=== PATIENT | female | born 1985 ===

== ENCOUNTER 2023-05-23 13:03 | Emergency (ER) | payer SELFPAY ==
[~2023-05-23] VITALS: Ht 162.6 cm; Wt 75.0 kg
[2023-05-23 13:18] VITALS: O2SAT 83
[2023-05-23 14:20] LABS: CLARITY URINE CLEAR (CLEAR); COLOR URINE YELLOW (YELLOW); GLUCOSE URINE NEGATIVE (NEGATIVE); KETONES URINE NEGATIVE (NEGATIVE); LEUKOCYTE ESTERASE URINE 1+ (NEGATIVE); NITRITE URINE NEGATIVE (NEGATIVE); OCCULT BLOOD URINE TRACE (NEGATIVE); PROTEIN URINE NEGATIVE (NEGATIVE); SPECIFIC GRAVITY URINE 1.009 (1.005-1.030); UROBILINOGEN URINE 0.2 E.U./dL (0.2-1.0)
[2023-05-23] MEDS ORDERED: MAGNESIUM/ALUMINUM HYDROXIDE/SIMETHICONE 30ML UDC PO STA (14:21)
[2023-05-23 14:29] LABS: BASOPHILS % 0.3 % (0.0-2.0); EOSINOPHILS % 2.1 % (0.0-5.0); HEMATOCRIT. 41.2 % (36.0-48.0); HEMOGLOBIN. 13.7 g/dL (12.0-16.0); LYMPHOCYTES % 41.6 % (20.0-50.0); MEAN CORPUSCULAR HEMOGLOBIN 29.9 pg (28.0-32.0); MEAN CORPUSCULAR HGB CONC 33.3 g/dL (31.0-37.0); MEAN CORPUSCULAR VOLUME 89.8 fL (81.0-99.0); MEAN PLATELET VOLUME 9.1 fl (7.4-10.4); MONOCYTES % 11.3 % (2.0-8.0); NEUTROPHILS % 44.7 % (40.0-76.0); PLATELET 297 x1000/uL (130-400); RED BLOOD CELL COUNT 4.59 mill/uL (4.2-5.4); WHITE BLOOD COUNT 4.1 x1000/uL (4.5-11.0)
[2023-05-23] MEDS ORDERED: ONDANSETRON HCL 4MG TABLET PO ONE (14:30)
[2023-05-23] MEDS ORDERED: FAMOTIDINE 20MG TABLET PO ONE (14:30)
[2023-05-23] MEDS ORDERED: VISCOUS LIDOCAINE 2% 15 ML UDC PO NR (14:30)
[2023-05-23 14:40] LABS: SQUAMOUS EPITHELIAL CELL URINE 3+ /lpf (RARE/1+)
[2023-05-23 14:40] LABS: ALANINE AMINOTRANSFERASE 94 IU/L (10-49); ALBUMIN 4.3 g/dL (3.2-4.8); ASPARTATE AMINOTRANSFERASE 109 IU/L (<34); BILIRUBIN TOTAL 0.3 mg/dL (0.1-1.0); CALCIUM 8.7 mg/dL (8.7-10.4); CARBON DIOXIDE 29 mEq/L (21-32); CHLORIDE 106 mEq/L (98-107); CREATININE 0.6 mg/dL (0.6-1.0); GLUCOSE 124 mg/dL (70-105); POTASSIUM 4.1 mEq/L (3.5-5.1); PROTEIN TOTAL 7.5 g/dL (6.0-8.3); SODIUM 138 mEq/L (136-145); UREA NITROGEN BLOOD 8 mg/dL (9-23)
[2023-05-23 14:41] LABS: BACTERIA URINE 1+
[2023-05-23 14:42] LABS: RBC URINE NONE SEEN /hpf (0-2)
[2023-05-23 14:54] LABS: HCG SCREEN NEGATIVE
[2023-05-23] MEDS ORDERED: ACETAMINOPHEN 325MG TABLET PO ONE (16:00)
[2023-05-23] MEDS ORDERED: MAG-55 MT (16:57)
[2023-05-23] MEDS ORDERED: FAMO-135 MT (16:57)
[2023-05-23 17:20] VITALS: BP 121/78; PULSE 85; RESP 16; TEMP 98.2
== END 2023-05-23 17:22 | disposition home or self-care (01) ==
LOC: ER 13:03
DX: R11.2 Nausea with vomiting, unspecified (principal); R10.9 Unspecified abdominal pain; R19.7 Diarrhea, unspecified; Z20.822 Contact with and (suspected) exposure to COVID-19; Z90.49 Acquired absence of other specified parts of digestive tract
CPT/HCPCS: 99284; 87426; 80053; 81003; 81025; 84703; 83690; 85025; 87804 ×2; 36415; 93005; Q0162

== ENCOUNTER 2023-06-02 10:55 | Emergency (ER) | payer MEDICAID ==
[~2023-06-02] VITALS: Ht 160 cm; Wt 75.0 kg
[~2023-06-02 10:55] MED LIST: FAMO-135 MT; MAG-55 MT
[2023-06-02 11:05] VITALS: O2SAT 99
[2023-06-02] MEDS ORDERED: ACETAMINOPHEN 325MG TABLET PO ONE (11:45)
[2023-06-02] MEDS ORDERED: ONDANSETRON 4MG ODT PO ONE (11:45)
[2023-06-02 12:00] LABS: BASOPHILS % 0.5 % (0.0-2.0); EOSINOPHILS % 0.4 % (0.0-5.0); HEMATOCRIT. 39.9 % (36.0-48.0); HEMOGLOBIN. 13.4 g/dL (12.0-16.0); MEAN CORPUSCULAR HEMOGLOBIN 29.9 pg (28.0-32.0); MEAN CORPUSCULAR HGB CONC 33.7 g/dL (31.0-37.0); MEAN CORPUSCULAR VOLUME 88.8 fL (81.0-99.0); MEAN PLATELET VOLUME 8.8 fl (7.4-10.4); MONOCYTES % 6.6 % (2.0-8.0); NEUTROPHILS % 75.5 % (40.0-76.0); PLATELET 361 x1000/uL (130-400); RED CELL DISTRIBUTION WIDTH 12.5 % (11.6-14.6); WHITE BLOOD COUNT 10.9 x1000/uL (4.5-11.0)
[2023-06-02 12:14] LABS: ALANINE AMINOTRANSFERASE 43 IU/L (10-49); ALBUMIN 4.5 g/dL (3.2-4.8); ASPARTATE AMINOTRANSFERASE 29 IU/L (<34); BILIRUBIN TOTAL 0.4 mg/dL (0.1-1.0); CALCIUM 9.3 mg/dL (8.7-10.4); CARBON DIOXIDE 26 mEq/L (21-32); CHLORIDE 103 mEq/L (98-107); CREATININE 0.5 mg/dL (0.6-1.0); GLUCOSE 101 mg/dL (70-105); POTASSIUM 3.6 mEq/L (3.5-5.1); PROTEIN TOTAL 7.5 g/dL (6.0-8.3); SODIUM 136 mEq/L (136-145); UREA NITROGEN BLOOD 9 mg/dL (9-23)
[2023-06-02 12:40] LABS: HCG SCREEN NEGATIVE
[2023-06-02] MEDS ORDERED: ACETAMINOPHEN 325MG TABLET PO NR (15:49)
[2023-06-02] MEDS ORDERED: ONDANSETRON 4MG ODT PO NR (15:49)
[2023-06-02 16:14] LABS: CLARITY URINE CLEAR (CLEAR); COLOR URINE YELLOW (YELLOW); GLUCOSE URINE NEGATIVE (NEGATIVE); KETONES URINE 4+ (NEGATIVE); LEUKOCYTE ESTERASE URINE NEGATIVE (NEGATIVE); NITRITE URINE NEGATIVE (NEGATIVE); OCCULT BLOOD URINE TRACE (NEGATIVE); PROTEIN URINE NEGATIVE (NEGATIVE); SPECIFIC GRAVITY URINE 1.029 (1.005-1.030); UROBILINOGEN URINE 0.2 E.U./dL (0.2-1.0)
[2023-06-02 16:33] LABS: BACTERIA URINE 1+; RBC URINE 0-2 /hpf (0-2); SQUAMOUS EPITHELIAL CELL URINE 1+ /lpf (RARE/1+); WBC URINE 0-2 /hpf (0-2)
[2023-06-02] MEDS ORDERED: KETOROLAC 30MG/ML VIAL IM ONE (16:45)
[2023-06-02] MEDS ORDERED: ONDA4TAB11 PO (17:17)
[2023-06-02 17:41] VITALS: BP 124/78; PULSE 78; RESP 16; TEMP 98.5
== END 2023-06-02 17:42 | disposition home or self-care (01) ==
LOC: ER 10:55
DX: K52.9 Noninfective gastroenteritis and colitis, unspecified (principal); R11.2 Nausea with vomiting, unspecified
CPT/HCPCS: 99285; 74176; 80053; 81003; 84703; 83690; 85025; 36415; 96372; Q0162; J1885